=== PATIENT | female | born 1965 | race Caucasian/White ===

== ENCOUNTER 2018-07-18 18:52 | Emergency (ER) | payer OTHER, SELFPAY ==
[2018-07-18] MEDS ORDERED: Ibuprofen 200 MG TAB ONE (20:54)
--- NOTE | 2018-07-18 21:11 | RAD ---
TWO VIEWS RIGHT KNEE: Comparison: None. History: Right knee pain. FINDINGS: Three views of the right knee shows no evidence of acute fracture or dislocation. A moderate knee eff usion is seen. There appears to be an osteochondral defect along the medial femoral condyle. No degen erative changes are otherwise seen. IMPRESSION: Osteochondral injury along the medial femoral condyle and knee effusion as above. POS: [facility]
== END 2018-07-18 21:12 | disposition home or self-care (01) ==
LOC: ERS 18:52
DX: M25.561 Pain in right knee (principal); I10 Essential (primary) hypertension; F17.210 Nicotine dependence, cigarettes, uncomplicated

== ENCOUNTER 2022-01-30 09:53 | Outpatient (CLI) | payer OTHER | END 2022-01-30 09:54 | disposition home or self-care (01) | LOC: LABBT 09:53 | PROVIDERS: ATTEND Orthopaedic Surgery | DX: U07.1 COVID-19 (principal); M17.31 Unilateral post-traumatic osteoarthritis, right knee; T84.84XA Pain due to internal orthopedic prosthetic devices, implants and grafts, initial encounter | CPT/HCPCS: U0003; U0005 ==

== ENCOUNTER 2022-03-20 12:56 | Outpatient (CLI) | payer OTHER ==
[2022-03-20 14:12] LABS: Hemoglobin 13.8 g/dL (12.0-15.5); Mean Corpuscular HGB CONC 34.3 g/dL (32.0-36.0); Mean Corpuscular Hemoglobin 32.6 pg (27.0-33.0); Mean Platelet Volume 10.2 fl (7.4-10.4); Platelet Count 323 10x3/uL (150-450); Red Blood Cell (RBC) Count 4.23 10x6/uL (3.90-5.03); White Blood Cell (WBC) Count 9.1 10x3/uL (3.5-10.5)
[2022-03-20 14:16] LABS: Prothrombin Time 10.7 sec (9.5-12.1)
[2022-03-20 14:19] LABS: Anion Gap 18 mmol/L (10-20); BUN (Urea Nitrogen) 14 mg/dL (9.8-20.1); Calc. Creatinine Clearance 0 mL/min (70-130); Calcium 10.3 mg/dL (7.8-10.44); Carbon Dioxide 23 mmol/L (22-29); Chloride 98 mmol/L (98-107); Estimated GFR 104; Glucose 97 mg/dL (70-105); Potassium 3.8 mmol/L (3.5-5.1); Sodium 135 mmol/L (136-145)
[2022-03-20 14:49] LABS: MDiff Complete? YES
[2022-03-20 15:08] LABS: Band 1 % (5-11); Eosinophils 1 % (0-10); Lymphocytes 37 % (21-51); Monocytes 3 % (0-10); Neutrophil 54 % (42-75); Reactive Lymphocytes 3 % (0-10)
[2022-03-20 15:10] LABS: Platelet Morphology Comment Appears Adequate
[2022-03-20 15:11] LABS: Anisocytosis SLIGHT = 6-15 cells (100X) (0-5/hpf); Ovalocytes SLIGHT = 2-5 cells (100X) (0-1/hpf)
== END 2022-03-20 12:57 | disposition home or self-care (01) ==
LOC: LABBT 12:56
PROVIDERS: ATTEND Orthopaedic Surgery
DX: Z01.818 Encounter for other preprocedural examination (principal); M17.31 Unilateral post-traumatic osteoarthritis, right knee
CPT/HCPCS: 80048; 85025; 85610; 87081; 93005; 93010

== ENCOUNTER 2022-03-25 05:39 | Observation (INO) | payer OTHER ==
[2022-03-21 15:20] VITALS: BMI 23.3
[2022-03-25] MEDS ORDERED: Tranexamic Acid 1,000 MG/10 ML VIAL ONE (06:05)
[2022-03-25] MEDS ORDERED: Sodium Chloride 0.9% 100 ML ONE ×2 (06:05→06:56)
[2022-03-25] MEDS ORDERED: Vancomycin 1 GM/200 ML BAG ONE (06:05)
[2022-03-25] MEDS ORDERED: Lidocaine 1% PF 5 ML VIAL ONE (06:26)
[2022-03-25] MEDS ORDERED: Ketorolac Tromethamine 30 MG/ML VIAL ONE (06:26)
[2022-03-25] MEDS ORDERED: Bupivacaine HCl 0.5%/Epinephrine 1:200,000/PF 30 ml Vial ONE (06:26)
[2022-03-25] MEDS ORDERED: Dexamethasone 20 MG/5 ML VIAL ONE (06:26)
[2022-03-25] MEDS ORDERED: PROPOFOL 200 MG/20 ML VIAL ONE (06:26)
[2022-03-25] MEDS ORDERED: ePHEDrine 50 MG/ML VIAL ONE (06:26)
[2022-03-25] MEDS ORDERED: Ondansetron PF 4 MG/2 ML Vial ONE (06:26)
[2022-03-25] MEDS ORDERED: Scopolamine 1.5 mg/72 hour Patch ONE (06:28)
[2022-03-25] MEDS ORDERED: Fentanyl 100 MCG/2 ML VIAL ONE ×2 (06:28→09:12)
[2022-03-25] MEDS ORDERED: Midazolam HCl 2 mg/2 ml Vial ONE (06:28)
[2022-03-25] MEDS ORDERED: Lidocaine 1% MPF 2 ML VIAL ONE (06:28)
[2022-03-25] MEDS ORDERED: Bupivacaine PF 0.5% 30 ML VIAL ONE (06:48)
[2022-03-25] MEDS ORDERED: Promethazine HCl 25 MG/ML VIAL ONE (06:56)
[2022-03-25] MEDS ORDERED: CEFAZOLIN 2 GM VIAL ONE (06:56)
[2022-03-25] MEDS ORDERED: Ondansetron PF 4 MG/2 ML Vial IVP PRN ×2 (07:01→08:30)
[2022-03-25] MEDS ORDERED: Acetaminophen 325 MG TAB PO PRN (07:01)
[2022-03-25] MEDS ORDERED: Zolpidem Tartrate 5 MG TAB PO PRN ×2 (07:01→08:30)
[2022-03-25] MEDS ORDERED: HYDROcodone/Acetaminophen 10/325 mg Tablet PO PRN ×2 (07:01)
[2022-03-25] MEDS ORDERED: Fentanyl 100 MCG/2 ML VIAL SLOW IVP PRN ×3 (07:01→08:17)
[2022-03-25] MEDS ORDERED: Promethazine HCl 25 MG/ML VIAL IM PRN ×4 (07:01→09:07)
[2022-03-25] MEDS ORDERED: diphenhydrAMINE 25 MG CAP PO PRN (07:01)
[2022-03-25] MEDS ORDERED: ceFAZolin 2 GM/Dextrose 50 ML 2 GM in Premix Bag 1 BAG IVPB SCH (07:15)
[2022-03-25] MEDS ORDERED: traMADol HCl 50 MG TAB PO PRN ×2 (08:30)
[2022-03-25] MEDS ORDERED: Ropivacaine 0.2% 550 ML 550 ML NERVE BLCK SCH (08:30)
[2022-03-25] MEDS ORDERED: Promethazine HCl 25 MG/ML VIAL IVPB PRN ×2 (08:59→09:07)
[2022-03-25] MEDS ORDERED: Ondansetron HCl/PF 4 MG/2 ML Vial IVP PRN ×2 (08:59→09:07)
[2022-03-25] MEDS ORDERED: Non-Formulary Item 1 EACH (Sertraline Hcl [Sertraline Hcl] 50 MG Tablet) PO SCH (09:00)
[2022-03-25] MEDS ORDERED: PACU-Morphine 4MG/ML VIAL SLOW IVP PRN (09:07)
[2022-03-25] MEDS ORDERED: HYDROmorphone 2 MG/ML VIAL SLOW IVP PRN (09:07)
[2022-03-25] MEDS: Gemfibrozil 600 MG TAB PO SCH ×2 (11:34→16:02)
[2022-03-25] MEDS: Aspirin 81 mg Enteric Coated Tablet PO SCH ×2 (11:34→20:29)
[2022-03-25] MEDS: Calcium Carbonate 600 MG + Vit D TAB PO SCH (11:34)
[2022-03-25] MEDS: Sodium Chloride 0.9% 1,000 ML IV SCH ×3 (11:34→18:07)
[2022-03-25] MEDS: Ferrous Gluconate 324 MG TAB PO SCH ×2 (11:34→20:28)
[2022-03-25] MEDS: Senokot S 8.6-50 MG TAB PO SCH ×2 (11:35→20:30)
[2022-03-25] MEDS: Multivitamin W/ Minerals 1 TAB PO SCH (11:35)
[2022-03-25] MEDS: HYDROcodone/Acetaminophen 10/325 mg Tablet PO PRN ×2 (12:07→20:28)
[2022-03-25] MEDS: Ketorolac Tromethamine 30 MG/ML VIAL IVP SCH ×3 (12:08→23:59)
[2022-03-25] MEDS ORDERED: Ketorolac Tromethamine 30 MG/ML VIAL IVP SCH (14:00)
[2022-03-25] MEDS: CEFAZOLIN 2 GM in Sodium Chloride 0.9% 100 ML IVPB SCH ×2 (14:38→20:31)
[2022-03-26] MEDS: Sodium Chloride 0.9% 1,000 ML IV SCH (03:22)
[2022-03-26] MEDS: HYDROcodone/Acetaminophen 10/325 mg Tablet PO PRN ×2 (05:40→11:36)
[2022-03-26] MEDS: Ketorolac Tromethamine 30 MG/ML VIAL IVP SCH ×2 (05:41→11:33)
[2022-03-26 05:53] LABS: Hemoglobin 9.8 g/dL (12.0-16.0); Mean Corpuscular HGB CONC 33.3 g/dL (32.0-36.0); Mean Corpuscular Hemoglobin 33.9 pg (27.0-31.0); Mean Platelet Volume 8.1 fL (7.4-10.4); Platelet Count 226 thou/uL (130-400); RBC Distribution Width 12.6 % (11.5-14.5); Red Blood Cell (RBC) Count 2.89 mill/uL (4.20-5.40); White Blood Cell (WBC) Count 8.3 thou/uL (4.8-10.8)
[2022-03-26] MEDS: Gemfibrozil 600 MG TAB PO SCH (08:36)
[2022-03-26] MEDS: Ferrous Gluconate 324 MG TAB PO SCH (08:37)
[2022-03-26] MEDS: Multivitamin W/ Minerals 1 TAB PO SCH (08:37)
[2022-03-26] MEDS: Aspirin 81 mg Enteric Coated Tablet PO SCH (08:37)
[2022-03-26] MEDS: Calcium Carbonate 600 MG + Vit D TAB PO SCH (08:37)
[2022-03-26] MEDS: Senokot S 8.6-50 MG TAB PO SCH (08:38)
[2022-03-26] MEDS ORDERED: Polyethylene Glycol 3350 17 GM Packet PO SCH (11:30)
[2022-03-26 12:05] VITALS: BP 126/69; TEMP 98.4
== END 2022-03-26 11:56 | disposition home or self-care (01) ==
LOC: SDC 05:39 → SJJU 10:17 → SDC 10:20 → SJJU 10:42
PROVIDERS: ADMIT Orthopaedic Surgery; ATTEND Orthopaedic Surgery
PROC: 0SRC0J9 Replacement of Right Knee Joint with Synthetic Substitute, Cemented, Open Approach (ICD-10-PCS; principal; 2022-03-25)
PROC: 8E0YXBZ Computer Assisted Procedure of Lower Extremity (ICD-10-PCS; 2022-03-25)
PROC: 3E0T3BZ Introduction of Anesthetic Agent into Peripheral Nerves and Plexi, Percutaneous Approach (ICD-10-PCS; 2022-03-25)
DX: M17.31 Unilateral post-traumatic osteoarthritis, right knee (principal); M87.851 Other osteonecrosis, right femur; T84.84XA Pain due to internal orthopedic prosthetic devices, implants and grafts, initial encounter; G89.29 Other chronic pain; M54.9 Dorsalgia, unspecified; F10.10 Alcohol abuse, uncomplicated; I10 Essential (primary) hypertension; Z87.891 Personal history of nicotine dependence; Z79.899 Other long term (current) drug therapy; Z88.0 Allergy status to penicillin; Z96.642 Presence of left artificial hip joint
CPT/HCPCS: 36415; 85027; A4306; C1713; C1776; J0690; J1100; J1885; J2250; J2405; J2550; J2704; J2795; J3010; J3370; J3490; J7050; S0020

== ENCOUNTER 2022-12-30 14:10 | Outpatient (CLI) | payer OTHER | END 2022-12-30 14:11 | disposition home or self-care (01) | LOC: SCSRAD 14:10 | PROVIDERS: ATTEND Nurse Practitioner Family | DX: M25.561 Pain in right knee (principal) ==

== ENCOUNTER 2025-04-13 08:22 | Outpatient (CLI) | payer MEDICAID | END 2025-04-13 08:23 | disposition home or self-care (01) | LOC: BICULT 08:22 | PROVIDERS: ATTEND Physician Assistant Medical | DX: R79.89 Other specified abnormal findings of blood chemistry (principal); F10.10 Alcohol abuse, uncomplicated; K76.0 Fatty (change of) liver, not elsewhere classified | CPT/HCPCS: 76705 ==